=== PATIENT | female | born 1970 | race Caucasian/White ===

== ENCOUNTER → 2017-01-20 | Outpatient (CLI) | payer BC ==
[~2017-01-20] MED LIST: IBUP-103 PO
--- NOTE | 2017-01-20 09:27 | DIAGNOSTIC IMAGING REPORT ---
ABDOMEN COMPLETE (US) CLINICAL HISTORY: Abdominal pain. COMPARISON STUDY: No previous studies for comparison. FINDINGS: Liver morphology is normal. Liver is sonographically normal. There are no gallstones. No gallbladder wall thickening is present. Pancreas is sonographically normal. There is no biliary ductal dilatation. The size of the spleen is normal, measuring 11 cm. The right kidney measures 13.2 cm and the left measures 11.4 cm. There is no hydronephrosis. No calculi are identified. A 1 cm echogenic lesion within the upper pole of the left kidney is noted. Caliber of the abdominal aorta is normal. Visualized portions of the IVC are patent. IMPRESSION: 1. No gallstones or biliary ductal dilatation. 2. No hydronephrosis. 3. 1 cm echogenic left renal lesion. This likely reflects an angiomyolipoma however this lesion is indeterminate and a follow-up renal ultrasound in 6 months is recommended to ensure stability. Electronically signed by: Gagan Steiner M.D. 01/20/2017 9:25 AM Dictated Date/Time: 01/20/2017 9:23 AM
== END | disposition home or self-care (01) ==
LOC: C.ULTRBC 08:43
PROVIDERS: ATTEND Family Medicine
DX: R10.10 Upper abdominal pain, unspecified (principal)

== ENCOUNTER → 2017-05-26 | Outpatient (CLI) | payer BC ==
--- NOTE | 2017-05-27 15:12 | MAMMOGRAPHY REPORT ---
BILATERAL DIGITAL SCREENING MAMMOGRAM TOMOSYNTHESIS WITH CAD: 05/26/2017 CLINICAL HISTORY: Routine screening. Patient has no complaints. TECHNIQUE: Breast tomosynthesis in addition to standard 2D mammography was performed. Current study was also evaluated with a Computer Aided Detection (CAD) system. COMPARISON: Comparison is made to exams dated: 05/23/2016 mammogram - [facility] and 01/23/2015 mammogram - [facility]. BREAST COMPOSITION: There are scattered areas of fibroglandular density in both breasts. FINDINGS: There is a newly visualized 4.5 mm circumscribed mass in the upper outer middle one third of the right breast, for which additional targeted ultrasound and possible additional mammographic vi ews are recommended, although this could represent a cyst. There is also an 11 mm focal asymmetry in the 12:00 anterior versus retroareolar right breast, which could represent normal overlapping tissue . However, additional spot compression tomosynthesis views and possible ultrasound are recommended. No other suspicious mass, asymmetry, area of distortion or suspicious microcavitation's are seen bila terally. IMPRESSION: ACR BI-RADS CATEGORY 0: INCOMPLETE EVALUATION: NEED ADDITIONAL IMAGING EVALUATION The newly visualized 4.5 mm circumscribed mass in the right upper outer quadrant, and 11 mm focal asy mmetry in the right breast need additional imaging evaluation. The patient will be called to schedule an appointment. Approximately 10% of breast cancers are not detected with mammography. A negative mammographic report should not delay biopsy if a clinically suggestive mass is present. Pamela Avalos M.D. ay/:05/26/2017 16:39:59 Policy Writer Typist: Chio Schreiber, [facility] letter sent: Addl Imaging 0 BI-RADS Code: ACR BI-RADS Category 0: Incomplete Evaluation: Need Additional Imaging Evaluation
== END | disposition home or self-care (01) ==
LOC: C.MAMM 10:28
PROVIDERS: ATTEND Family Medicine
DX: Z12.31 Encounter for screening mammogram for malignant neoplasm of breast (principal); N63 Unspecified lump in breast; N64.59 Other signs and symptoms in breast

== ENCOUNTER → 2017-06-02 | Outpatient (CLI) | payer BC ==
--- NOTE | 2017-06-02 13:09 | MAMMOGRAPHY REPORT ---
UNILATERAL RIGHT DIGITAL DIAGNOSTIC MAMMOGRAM TOMOSYNTHESIS AND TARGETED RIGHT ULTRASOUND: 06/02/2017 CLINICAL HISTORY: 46-year-old woman called back from screening mammography for a 10 mm asymmetry in t he retroareolar right breast, and a small 4.5 mm mass in the right upper outer quadrant. TECHNIQUE: Spot compression CC and MLO 2-D and tomosynthesis images of the right breast were obtaine d. COMPARISON: Comparison is made to exams dated: 05/26/2017 mammogram, 05/23/2016 mammogram - [facility], and 01/23/2015 mammogram - [facility]. BREAST COMPOSITION: There are scattered areas of fibroglandular density in the right breast. FINDINGS: The spot compression 2-D and tomosynthesis views of the right breast demonstrate persisten ce of a lobulated, 10 x 12 mm mass in the anterior retroareolar right breast, 3.2 cm distal to the ni pple. This is in the approximate 12:00 axis based on the spot compression MLO view. A well-circumsc ribed oval 4.6 x 4.0 mm mass is seen in the upper outer middle one third of the right breast. No foc al area of architectural distortion or suspicious microcalcification. Further characterization with ultrasound was performed. Targeted ultrasound was performed in the right breast. In the 10:00 axis, 2 cm from the nipple, ther e is an oval parallel circumscribed anechoic benign simple cyst measuring 4.5 x 1.9 x 3.8 mm. 2 mine cent smaller cysts are identified. The larger is seen in the 10:00 axis, 1 cm from the nipple, measu ring 5.9 x 2.5 x 4.2 mm. One of the cysts is thought to correlate with the well-circumscribed 4.5 mm mammographic mass. In the 12:00 periareolar right breast, there is a microcyst cluster, measuring a pproximately 9.6 x 3.8 x 11.2 mm. This is thought to correlate with the lobulated mammographic mass and is also benign. IMPRESSION: ACR BI-RADS CATEGORY 2: BENIGN, TARGETED ULTRASOUND ACR BI-RADS CATEGORY 2: BENIGN There are two benign simple cysts in the 10:00 right breast and a microcyst cluster in the 12:00 righ t breast, which correlate with the mammographic findings and are compatible with benign fibrous cysti c changes. There is no mammographic or targeted sonographic evidence of malignancy in the right [address]. Recommend routine mammography in one year. Approximately 10% of breast cancers are not detected with mammography. A negative mammographic report should not delay biopsy if a clinically suggestive mass is present. Pamela Avalos M.D. ay/:06/02/2017 08:23:24 Certified Medication Technician: Alissa DENNY(R)(M), [facility] letter sent: Normal 1/2 BI-RADS Code: ACR BI-RADS Category 2: Benign Ultrasound BI-RADS: ACR BI-RADS Category 2: Benign
== END | disposition home or self-care (01) ==
LOC: C.MAMM 07:45
PROVIDERS: ATTEND Family Medicine
DX: R92.8 Other abnormal and inconclusive findings on diagnostic imaging of breast (principal); N63 Unspecified lump in breast

== ENCOUNTER → 2017-08-18 | Outpatient (CLI) | payer BC ==
--- NOTE | 2017-08-18 10:10 | DIAGNOSTIC IMAGING REPORT ---
LUMBAR SPINE 2 OR 3 VIEWS CLINICAL HISTORY: LOW BACK PAIN pain COMPARISON STUDY: None FINDINGS: Mild scoliosis. Vertebral body stature is normal. Disc spaces are well-preserved. Lateral elements are intact. No evidence for subluxation. IMPRESSION: Mild scoliosis. Otherwise negative study. The above report was generated using voice recognition software. It may contain grammatical, syntax or spelling errors. Electronically signed by: Adarsh Page M.D. 08/18/2017 10:09 AM Dictated Date/Time: 08/18/2017 10:08 AM
== END | disposition home or self-care (01) ==
LOC: C.RADBC 09:33
PROVIDERS: ATTEND Family Medicine
DX: M41.9 Scoliosis, unspecified (principal)

== ENCOUNTER → 2017-08-25 | Outpatient (CLI) | payer BC ==
--- NOTE | 2017-08-25 09:27 | DIAGNOSTIC IMAGING REPORT ---
(RENAL)RETROPERITON COMP CLINICAL HISTORY: 46 years-old Female presenting with UPPER ABDOMINAL PAIN, UNSPECIFIED. TECHNIQUE: Real-time grayscale and limited color Doppler ultrasound imaging of the kidneys and bladder was performed. COMPARISON: 01/20/2017. FINDINGS: Right kidney: Normal echogenicity. Right kidney measures 13.1 cm. No hydronephrosis. No convincing evidence of calculus or mass. Normal perfusion. Left kidney: Normal echogenicity. Left kidney measures 11.8 cm. No hydronephrosis. 1.0 cm hyperechogenic lesion at the upper pole of the left kidney. Normal perfusion. Bladder: No bladder wall thickening. Bilateral ureteral jets present. Other: None. IMPRESSION: 1. 1 cm hyperechogenic lesion at the upper pole the left kidney. This is indeterminate but could represent an angiomyolipoma, especially given the stability since the prior exam. Renal cell carcinoma is less often hyperechogenic but cannot be completely excluded. If there is clinical concern, further evaluation with pre and postcontrast enhanced CT of the kidneys could be obtained versus contrast-enhanced MR. 2. No obstruction. Electronically signed by: Gurdeep Cardenas M.D. 08/25/2017 9:26 AM Dictated Date/Time: 08/25/2017 9:23 AM
--- NOTE | 2017-08-25 09:28 | DIAGNOSTIC IMAGING REPORT ---
ABDOMEN LIMITED (US) CLINICAL HISTORY: 46 years-old Female presenting with UPPER ABDOMINAL PAIN, UNSPECIFIED. TECHNIQUE: Real-time grayscale and limited color Doppler ultrasound imaging of the abdomen limited to the right upper quadrant was performed. COMPARISON: 01/20/2017. FINDINGS: Pancreas: Visualized portions of the pancreatic head and body normal. Liver: Normal echogenicity and echotexture. The liver measures 18.2 cm in maximal sagittal dimension. No sonographic evidence of hepatic mass. Main portal vein patent with normal directional flow. Biliary: No intrahepatic biliary ductal dilatation. Common bile duct measures up to 3 mm in diameter. Gallbladder: No evidence of gallstones, gallbladder wall thickening, gallbladder distention, or pericholecystic fluid or inflammatory change. Right kidney: Normal in appearance. No hydronephrosis. Ascites: None. IMPRESSION: Borderline hepatomegaly. Otherwise normal right upper quadrant ultrasound. Electronically signed by: Gurdeep Cardenas M.D. 08/25/2017 9:27 AM Dictated Date/Time: 08/25/2017 9:25 AM
== END | disposition home or self-care (01) ==
LOC: C.ULTR 08:23
PROVIDERS: ATTEND Family Medicine
DX: R10.10 Upper abdominal pain, unspecified (principal); N28.89 Other specified disorders of kidney and ureter

== ENCOUNTER → 2017-10-17 | Outpatient (CLI) | payer OTHER | END | disposition home or self-care (01) | LOC: C.PAPS 15:29 | PROVIDERS: ATTEND Physician Assistant | DX: Z12.4 Encounter for screening for malignant neoplasm of cervix (principal) ==